=== PATIENT | female | born 2000 | race African-American/Black ===

== ENCOUNTER 2022-12-14 07:04 | Emergency (ER) | payer OTHER ==
[2022-12-14 07:47] VITALS: BMI 34.0
[2022-12-14] MEDS ORDERED: ACETAMINOPHEN 325 MG TABLET (FP) PO ONE (08:04)
[2022-12-14] MEDS ORDERED: LACTATED RINGERS SOLUTION 1000 ML INFUS.BAG IV ONE ×2 (08:35→13:35)
[2022-12-14] MEDS ORDERED: FAMOTIDINE 20 MG/50 ML IVPB 20 MG/50 ML MG IVPB ONE ×2 (08:35→08:59)
[2022-12-14] MEDS ORDERED: ACETAMINOPHEN 1000 MG/100 ML BAG IVPB ONE (08:35)
[2022-12-14] MEDS ORDERED: ACETAMINOPHEN INJECTION 100 ML IVPB ONE (08:59)
[2022-12-14 09:49] LABS: HEMATOCRIT 37.5 % (32.4-45.2); HEMOGLOBIN 12.2 GM/dL (10.7-15.3); MCH 20.6 pg (25.7-33.7); MCHC 32.5 g/dl (32.0-36.0); MEAN CELL VOLUME 63.4 fl (80-96); MEAN PLT VOLUME 8.7 fl (7.5-11.1); PLATELET COUNT 386 10^3/uL (134-434); RBC 5.92 M/mm3 (3.60-5.2); RDW 19.4 % (11.6-15.6)
[2022-12-14 10:03] LABS: CALCIUM 9.6 mg/dL (8.5-10.1)
[2022-12-14 10:04] LABS: ALBUMIN 3.6 g/dl (3.4-5.0); BLOOD UREA NITROGEN 9.3 mg/dL (7-18)
[2022-12-14 10:07] LABS: CREATININE 0.7 mg/dL (0.55-1.3)
[2022-12-14 10:08] LABS: BILIRUBIN,TOTAL 0.6 mg/dL (0.2-1); TOT PROT 8.4 g/dl (6.4-8.2)
[2022-12-14 11:24] LABS: ANISOCYTOSIS 0; MACROCYTOSIS 0
[2022-12-14 12:37] LABS: EPI CELLS 20 /uL (0-25.1); HYALINE CASTS 2 /uL (0-3.1); PH,URINE 5.5 (5.0-8.0); URINE APPEARANCE CLEAR; URINE BACTERIA 181 /uL (0-1359); URINE BILIRUBIN NEGATIVE (NEGATIVE); URINE COLOR YELLOW; URINE GLUCOSE (UA) NEGATIVE (NEGATIVE); URINE KETONE 4+ (NEGATIVE); URINE LEUK ESTERASE NEGATIVE (NEGATIVE); URINE NITRITE NEGATIVE (NEGATIVE); URINE PROTEIN TRACE (NEGATIVE); URINE RBC 26 /uL (0-23.9)
[2022-12-14] MEDS ORDERED: AMOXICILLIN 500 MG CAPSULE (FP) PO ONE (14:37)
[2022-12-14] MEDS ORDERED: DEXAMETHASONE SOD PHOSPHATE 10 MG/1 ML VIAL IVPUSH ONE (14:55)
[2022-12-14] MEDS ORDERED: AMOXICILLIN 500 MG CAPSULE (FP) ONE (16:02)
[2022-12-14] MEDS ORDERED: DEXAMETHASONE SOD PHOSPHATE 10 MG/1 ML VIAL ONE (16:02)
[2022-12-14] MEDS ORDERED: IBUPROFEN 600 MG TABLET (FP) PO ONE ×2 (16:33→16:35)
[2022-12-14 17:36] VITALS: BP 145/78; TEMP 99.2
[2022-12-14 18:02] VITALS: RESP 20
[2022-12-14 18:38] VITALS: PULSE 119
== END 2022-12-14 19:21 | disposition home or self-care (01) ==
LOC: JER 07:04
PROC: 3E0333Z Introduction of Anti-inflammatory into Peripheral Vein, Percutaneous Approach (ICD-10-PCS; principal; 2022-12-14)
PROC: 3E033GC Introduction of Other Therapeutic Substance into Peripheral Vein, Percutaneous Approach (ICD-10-PCS; 2022-12-14)
PROC: 3E0333Z Introduction of Anti-inflammatory into Peripheral Vein, Percutaneous Approach (ICD-10-PCS; 2022-12-14)
DX: J02.0 Streptococcal pharyngitis (principal)
CPT/HCPCS: 0241U-QW; 36415; 74177-TC; 80053; 81003; 83690; 83735; 84703; 85025; 87070; 87086; 87651; 93005; 93010; 99285-25; J1100; Q9967

== ENCOUNTER 2023-05-09 06:57 | Emergency (ER) | payer OTHER ==
[2023-05-09 07:06] VITALS: BMI 30.8
[2023-05-09] MEDS ORDERED: SODIUM CHLORIDE 0.9% 500 ML INFUS.BAG IV ONE ×2 (08:11→08:44)
[2023-05-09] MEDS ORDERED: ACETAMINOPHEN 1000 MG/100 ML BAG IVPB ONE (08:11)
[2023-05-09] MEDS ORDERED: ACETAMINOPHEN INJECTION 100 ML IVPB ONE (08:38)
[2023-05-09] MEDS ORDERED: METOCLOPRAMIDE HCL INJECTION 10 MG/2 ML VIAL IVPB ONE (08:43)
[2023-05-09] MEDS ORDERED: METOCLOPRAMIDE HCL INJECTION 10 MG/2 ML VIAL ONE (09:07)
[2023-05-09 09:28] LABS: BASO % 0.3 % (0-2.0); EOS % 0.2 % (0-4.5); HEMATOCRIT 36.1 % (32.4-45.2); HEMOGLOBIN 11.6 GM/dL (10.7-15.3); LYMPH % 16.5 % (8-40); MCHC 32.2 g/dl (32.0-36.0); MEAN CELL VOLUME 65.3 fl (80-96); MEAN PLT VOLUME 8.7 fl (7.5-11.1); MONO % 10.2 % (3.8-10.2); NEUT % 72.8 % (42.8-82.8); PLATELET COUNT 343 10^3/uL (134-434); RBC 5.53 M/mm3 (3.60-5.2); RDW 17.3 % (11.6-15.6); WHITE BLOOD COUNT 15.7 K/mm3 (4.0-10.0)
[2023-05-09 09:31] LABS: URINE APPEARANCE CLEAR; URINE BILIRUBIN NEGATIVE (NEGATIVE); URINE COLOR YELLOW; URINE GLUCOSE (UA) NEGATIVE (NEGATIVE); URINE KETONE TRACE (NEGATIVE); URINE LEUK ESTERASE NEGATIVE (NEGATIVE); URINE NITRITE NEGATIVE (NEGATIVE); URINE PROTEIN NEGATIVE (NEGATIVE)
[2023-05-09 09:33] LABS: HCG,QUALITATIVE URINE Negative
[2023-05-09 09:38] LABS: POTASSIUM 4.2 mmol/L (3.5-5.1)
[2023-05-09 09:40] LABS: BLOOD UREA NITROGEN 6.3 mg/dL (7-18)
[2023-05-09 09:41] LABS: ALBUMIN 3.3 g/dl (3.4-5.0); CALCIUM 9.7 mg/dL (8.5-10.1)
[2023-05-09 09:44] LABS: CREATININE 0.6 mg/dL (0.55-1.3)
[2023-05-09 09:45] LABS: BILIRUBIN,TOTAL 0.4 mg/dL (0.2-1)
[2023-05-09 09:46] LABS: TOT PROT 7.8 g/dl (6.4-8.2)
[2023-05-09 10:18] LABS: ANISOCYTOSIS 0; MACROCYTOSIS 0
[2023-05-09 10:53] VITALS: BP 122/70; PULSE 116; RESP 20; TEMP 99.1
[2023-05-09] MEDS ORDERED: DEXAMETHASONE LIQUID 0.5 MG/5 ML PO ONE (10:55)
[2023-05-09] MEDS ORDERED: LIDOCAINE VISCOUS 2% ORAL/TOP 100 ML BOTTLE MM ONE (10:55)
[2023-05-09] MEDS ORDERED: MAG HYDROX/AL HYDROX/SIMETH 30 ML UNIT-DOSE CUP PO ONE (10:55)
[2023-05-09] MEDS ORDERED: PENICILLIN V POTASSIUM 500 MG TABLET PO ONE (10:56)
[2023-05-09] MEDS ORDERED: MAG HYDROX/AL HYDROX/SIMETH 30 ML UNIT-DOSE CUP ONE (11:18)
[2023-05-09] MEDS ORDERED: DEXAMETHASONE SOD PHOSPHATE 10 MG/1 ML VIAL ONE (11:18)
[2023-05-09] MEDS ORDERED: LIDOCAINE VISCOUS 2% ORAL/TOP 15 ML UNIT-DOSE CUP ONE (11:20)
[2023-05-09] MEDS ORDERED: KETOROLAC TROMETHAMINE 15 MG/ML VIAL IVPUSH ONE (11:21)
[2023-05-09] MEDS ORDERED: KETOROLAC TROMETHAMINE 15 MG/ML VIAL ONE (11:28)
== END 2023-05-09 11:52 | disposition home or self-care (01) ==
LOC: JER 06:57
PROC: 3E033NZ Introduction of Analgesics, Hypnotics, Sedatives into Peripheral Vein, Percutaneous Approach (ICD-10-PCS; principal; 2023-05-09)
PROC: 3E033GC Introduction of Other Therapeutic Substance into Peripheral Vein, Percutaneous Approach (ICD-10-PCS; 2023-05-09)
PROC: 3E033GC Introduction of Other Therapeutic Substance into Peripheral Vein, Percutaneous Approach (ICD-10-PCS; 2023-05-09)
PROC: 3E033GC Introduction of Other Therapeutic Substance into Peripheral Vein, Percutaneous Approach (ICD-10-PCS; 2023-05-09)
DX: R50.9 Fever, unspecified (principal); R51.9 Headache, unspecified; R07.9 Chest pain, unspecified; R00.0 Tachycardia, unspecified; J02.9 Acute pharyngitis, unspecified; Z20.822 Contact with and (suspected) exposure to COVID-19
CPT/HCPCS: 0241U-QW; 36415; 71046-TC-FY; 80053; 81003; 84703; 85025; 86308; 87070; 87086; 87651; 93005; 93010; 99285-25

== ENCOUNTER 2023-11-05 09:50 | Emergency (ER) | payer OTHER ==
[2023-11-05 10:15] VITALS: BP 141/87; PULSE 132; RESP 18; TEMP 98.2; BMI 30.6
[2023-11-05] MEDS ORDERED: IBUPROFEN 600 MG TABLET (FP) PO ONE ×2 (11:06→11:18)
[2023-11-05] MEDS ORDERED: ACETAMINOPHEN 500 MG TABLET (FP) PO ONE (11:06)
[2023-11-05] MEDS ORDERED: CYCLOBENZAPRINE HCL 10 MG TABLET (FP) PO ONE (11:06)
[2023-11-05] MEDS ORDERED: LIDOCAINE 4% PATCH TP ONE ×2 (11:06→11:17)
[2023-11-05] MEDS ORDERED: CYCLOBENZAPRINE HCL 10 MG TABLET (FP) ONE (11:17)
[2023-11-05] MEDS ORDERED: ACETAMINOPHEN 500 MG TABLET (FP) ONE (11:18)
[2023-11-05] MEDS ORDERED: LIDOCAINE PATCH REMOVAL MC ONE (22:00)
== END 2023-11-05 11:58 | disposition home or self-care (01) ==
LOC: JER 09:50 → JERFT 09:50
DX: M54.2 Cervicalgia (principal); R51.9 Headache, unspecified; M54.6 Pain in thoracic spine; V89.2XXA Person injured in unspecified motor-vehicle accident, traffic, initial encounter; Y93.I9 Activity, other involving external motion
CPT/HCPCS: 99283-25

== ENCOUNTER 2023-11-09 18:15 | Emergency (ER) | payer OTHER ==
[2023-11-09 18:24] VITALS: BP 143/78; PULSE 118; RESP 20; TEMP 98.1; BMI 30.6
[2023-11-09] MEDS ORDERED: KETOROLAC TROMETHAMINE 30 MG/1 ML VIAL IM ONE (21:17)
[2023-11-09] MEDS ORDERED: ACETAMINOPHEN 500 MG TABLET (FP) PO ONE (21:18)
[2023-11-09] MEDS ORDERED: METHOCARBAMOL 750 MG TABLET PO ONE (21:18)
[2023-11-09] MEDS ORDERED: ACETAMINOPHEN 500 MG TABLET (FP) ONE (21:20)
[2023-11-09] MEDS ORDERED: KETOROLAC TROMETHAMINE 30 MG/1 ML VIAL ONE (21:20)
[2023-11-09] MEDS ORDERED: METHOCARBAMOL 500 MG TABLET ONE (21:20)
== END 2023-11-09 23:48 | disposition home or self-care (01) ==
LOC: JER 18:15 → JERFT 18:15 → JER 23:48
PROC: 3E0233Z Introduction of Anti-inflammatory into Muscle, Percutaneous Approach (ICD-10-PCS; principal; 2023-11-09)
DX: M54.2 Cervicalgia (principal); S13.4XXA Sprain of ligaments of cervical spine, initial encounter; V89.2XXA Person injured in unspecified motor-vehicle accident, traffic, initial encounter
CPT/HCPCS: 72125-TC; 84703; 99284-25

== ENCOUNTER 2023-12-02 22:40 | Emergency (ER) | payer OTHER ==
[2023-12-02 22:50] VITALS: TEMP 98.2; BMI 31.1
[2023-12-03] MEDS ORDERED: ACETAMINOPHEN 1000 MG/100 ML BAG IVPB ONE (00:05)
[2023-12-03] MEDS ORDERED: SODIUM CHLORIDE 0.9% 500 ML INFUS.BAG IV ONE (00:06)
[2023-12-03] MEDS ORDERED: ACETAMINOPHEN INJECTION 100 ML IVPB ONE (00:19)
[2023-12-03 01:59] LABS: HEMATOCRIT 36.4 % (32.4-45.2); HEMOGLOBIN 11.8 GM/dL (10.7-15.3); MCH 20.9 pg (25.7-33.7); MCHC 32.5 g/dl (32.0-36.0); MEAN CELL VOLUME 64.2 fl (80-96); MEAN PLT VOLUME 8.5 fl (7.5-11.1); PLATELET COUNT 328 10^3/uL (134-434); RBC 5.67 M/mm3 (3.60-5.2); RDW 19.7 % (11.6-15.6); WHITE BLOOD COUNT 7.1 K/mm3 (4.0-10.0)
[2023-12-03 02:26] LABS: CHLORIDE 106 mmol/L (98-107); SODIUM 137 mmol/L (136-145)
[2023-12-03 02:30] LABS: ALBUMIN 3.2 g/dl (3.4-5.0); BLOOD UREA NITROGEN 9.5 mg/dL (7-18); CALCIUM 9.1 mg/dL (8.5-10.1); CO2 29 mmol/L (21-32); GLUCOSE,RANDOM 109 mg/dL (74-106); MAGNESIUM 1.8 mg/dL (1.8-2.4)
[2023-12-03 02:33] LABS: CREATININE 0.7 mg/dL (0.55-1.3); SGPT/ALT 43 U/L (13-61)
[2023-12-03 02:34] LABS: SGOT/AST 70 U/L (15-37)
[2023-12-03 02:35] LABS: BILIRUBIN,TOTAL 0.3 mg/dL (0.2-1); TOT PROT 7.9 g/dl (6.4-8.2)
[2023-12-03 02:36] LABS: ALK PHOS 139 U/L (45-117)
[2023-12-03 03:13] VITALS: BP 121/65; PULSE 95; RESP 15
[2023-12-03 03:24] LABS: ANION GAP 3 mmol/L (4-13); POTASSIUM 6.1 mmol/L (3.5-5.1)
[2023-12-03 04:43] LABS: POTASSIUM 3.8 mmol/L (3.5-5.1)
[2023-12-03 04:46] LABS: ALBUMIN 2.8 g/dl (3.4-5.0); BLOOD UREA NITROGEN 8.4 mg/dL (7-18); CALCIUM 8.5 mg/dL (8.5-10.1)
[2023-12-03 04:49] LABS: CREATININE 0.4 mg/dL (0.55-1.3)
[2023-12-03 04:51] LABS: BILIRUBIN,TOTAL 0.3 mg/dL (0.2-1); TOT PROT 6.6 g/dl (6.4-8.2)
[2023-12-03 06:27] LABS: ANISOCYTOSIS 3+; MACROCYTOSIS 0; OVALOCYTE 1+; ROULEAU 1+; TARGET CELLS 1+
== END 2023-12-03 06:09 | disposition home or self-care (01) ==
LOC: JER 22:40
PROC: 3E033NZ Introduction of Analgesics, Hypnotics, Sedatives into Peripheral Vein, Percutaneous Approach (ICD-10-PCS; principal; 2023-12-03)
DX: R51.9 Headache, unspecified (principal); R11.10 Vomiting, unspecified; Z20.822 Contact with and (suspected) exposure to COVID-19
CPT/HCPCS: 0241U-QW; 36415; 70450-TC; 72125-TC; 80053; 83735; 84439; 84443; 84703; 85025; 93005; 93010; 96374; 99285-25